=== PATIENT | female | born 1940 | race Caucasian/White ===

== ENCOUNTER 2023-09-30 08:23 | Emergency (ER) | payer MEDICARE, BC, SELFPAY ==
[2023-09-30] VITALS (12 sets, daily range): BP systolic 145–160; BP diastolic 73–88; PULSE 65–79; RESP 20; TEMP 37.6; O2SAT 90–95; BMI 32.6
--- NOTE | 2023-09-30 09:12 | ED_ITS ---
HPI - General Adult General Chief complaint: Arrhythmia/Palpitations Stated complaint: heart palpitations Time Seen by Provider: 09/30/23 08:28 Source: patient Mode of arrival: ambulatory Limitations: no limitations History of Present Illness HPI narrative: 82-year-old female, recently diagnosed with atrial fibrillation and placed on Xarelto which started yesterday, comes in today complaining of palpitations. Sh e states that all night she felt like her heart was beating really fast. She states that she still feels it beating fast right now but it is a little bit better than it was last night. She denies any confusion, nausea, vomiting or chest pain. She is not short of breath. Patient states that she had a 2 week ZIO patch placed in recently taken off, she has not gone over the results with her primary doctor or Cardiology. Her past medical history is significant for diabetes, hypertension, hyperlipidemia, history of DVT, GERD, obesity. Related Data Home Medications Medication Instructions Recorded Confirmed acyclovir 400 mg tablet 400 mg PO .As Needed PRN 04/05/22 09/11/23 amlodipine 10 mg tablet 10 mg PO DAILY 04/05/22 09/11/23 aspirin 81 mg tablet,delayed 81 mg PO DAILY 04/05/22 09/11/23 release atorvastatin 40 mg tablet 40 mg PO .Bedtime 04/05/22 09/11/23 celecoxib 200 mg capsule 200 mg PO DAILY 04/05/22 09/11/23 furosemide 20 mg tablet 20 mg PO DAILY 04/05/22 09/11/23 latanoprost 0.005 % eye drops 1 drp ophthalmic (eye) .Bedtime 04/05/22 09/11/23 losartan 100 mg tablet 100 mg PO DAILY 04/05/22 09/11/23 metformin 500 mg tablet 500 mg PO BID 04/05/22 09/11/23 multivitamin 1 tab PO QDAY 04/05/22 09/11/23 omeprazole 20 mg capsule,delayed 20 mg PO DAILY 04/05/22 09/11/23 release gabapentin 300 mg capsule mg PO 01/11/23 09/11/23 rivaroxaban 20 mg tablet (Xarelto) 20 mg PO QPM 09/30/23 09/30/23 Previous Rx's Medication Instructions Recorded Walker- 4 Wheels #1 ea 05/02/22 cane #1 ea 02/08/23 Allergies Allergy/AdvReac Type Severity Reaction Status Date / Time benazepril Allergy Verified 09/11/23 09:40 ciprofloxacin Allergy Rash Verified 09/11/23 09:40 hydrochlorothiazide Allergy Verified 09/11/23 09:40 latex Allergy Verified 09/11/23 09:40 metoprolol Allergy Verified 09/11/23 09:40 Penicillins Allergy Verified 09/11/23 09:40 Sulfa (Sulfonamide Allergy Verified 09/11/23 09:40 Antibiotics) Review of Systems Status of ROS: Reports: 10 or more systems reviewed and unremarkable except as noted in History and below [facility] Medical History Amputation toe ?S98.139A - Complete traumatic amputation of one unspecified lesser toe, initial encounter (ICD-10) Surgical History Status post vaginal hysterectomy (05/08/19) ?Z90.710 - Acquired absence of both cervix and uterus (ICD-10) Hx of cholecystectomy ?Z90.49 - Acquired absence of other specified parts of digestive tract (ICD- 10) 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 Alert and oriented. Answers questions appropriately. Mood and affect are appropriate. Thoughts are goal oriented and rational. No tangential or magical thinking noted. Patient speaks in full sentences without needing to catch her breath. HEENT: Normocephalic atraumatic. Pupils are equally round reactive to light. Extraocular muscles are intact. Conjunctivae are moist without any icterus noted. Moist mucous membranes. Cardiovascular: Heart is regular rate and rhythm S1 and S2 are present with a 1/6 systolic murmur. Lungs: Clear to auscultation bilaterally no wheezes rhonchi or rales are appreciated. Patient takes deep breaths without any discomfort. Abdomen: Soft and nontender nondistended with normal bowel sounds. Extremities: Bilateral lower extremities are without edema. Skin: Well perfused without any obvious rashes. Const: Vital Signs, click to edit/add: Vital Signs - 24 hr 09/30/23 08:38 09/30/23 08:45 09/30/23 08:46 Temperature 99.6 F Pulse Rate 76 75 Pulse Rate [Pulse Oximeter] 73 Respiratory Rate 20 Blood Pressure Blood Pressure [Ri ght Upper Arm] 160/73 H Pulse Oximetry 93 91 92 Oxygen Delivery Me thod Room Air 09/30/23 09:00 09/30/23 09:02 Temperature Pulse Rate 70 75 Pulse Rate [Pulse Oximeter] Respiratory Rate Blood Pressure 154/76 H Blood Pressure [Ri ght Upper Arm] Pulse Oximetry 94 92 Oxygen Delivery Me thod Course Course ED Course: EKG, read by me, looks like it is normal sinus rhythm with premature atrial complexes, right bundle-branch block, pulse of 75. However when she is on the dust operator it does look more consistent with atrial fibrillations with loss of P waves and a more varied pulse ranging from 66-78. We had the patient ambulate, her pulse did go up to 90 and her oxygen remained around 94%. Repeat EKG was done at this time and was unchanged. Patient was monitored for approximately 90 minutes, pulse remained stable. She did not have any chest pain. Troponin was checked and was within normal limits. Vital Signs Vital signs: Initial Vital Signs Pulse Rate 76 09/30/23 08:38 Pulse Oximetry 93 09/30/23 08:38 Vital Signs Pulse Rate 76 09/30/23 08:38 Pulse Oximetry 93 09/30/23 08:38 Temperature 99.6 F 09/30/23 08:46 Pulse Rate 75 09/30/23 09:02 Respiratory Rate 20 09/30/23 08:46 Blood Pressure 154/76 H 09/30/23 09:02 Pulse Oximetry 92 09/30/23 09:02 Oxygen Delivery Method Room Air 09/30/23 08:46 Medical Decision Making [facility] Narrative Medical decision making narrative: 82-year-old female with recent diagnosis of atrial fibrillation, on Xarelto. Presenting with palpitations. Patient has been stable while in the ED. We discussed returning if she feels palpitations again. We discussed checking how fast her pulse is going at home we went over how to do that today. And she already has follow-up scheduled with primary care, she will keep that appointment. Lab Data Lab results reviewed: Yes I reviewed the patient's lab results Labs: Lab Results 09/30/23 Range/Units 09:16 POC Troponin I 0.01 (0.01-0.04) ng/ml ECG Data Attestation: I personally reviewed and interpreted this ECG as follows: Discharge Plan Discharge Clinical Impression: Heart palpitations Patient Disposition: Home, Self-Care Condition: Stable Additional Instructions: If you feel your heart go fast again, recommend checking her pulse. If your above 100 do recommend you return to the ED. Also recommend you return if you have any chest pain or significant shortness of breath. Otherwise you can follow-up with your primary care provider. While your in the ER today, your heart did not go too fast or in any life threatening rhythms. We checked the enzyme of your heart, called the troponin, to make sure that the heart was not under any stress and this was normal. Prescriptions: No Action gabapentin 300 mg capsule PO losartan 100 mg tablet 100 mg PO DAILY furosemide 20 mg tablet 20 mg PO DAILY omeprazole 20 mg capsule,delayed release(DR/EC) 20 mg PO DAILY amlodipine 10 mg tablet 10 mg PO DAILY aspirin 81 mg tablet,delayed release (DR/EC) 81 mg PO DAILY acyclovir 400 mg tablet 400 mg PO .As Needed PRN metformin 500 mg tablet 500 mg PO BID atorvastatin 40 mg tablet 40 mg PO .Bedtime latanoprost 0.005 % drops 1 drp ophthalmic (eye) .Bedtime celecoxib 200 mg capsule 200 mg PO DAILY multivitamin Tablet 1 tab PO QDAY Xarelto 20 mg tablet 20 mg PO QPM (DME) Walker- 4 Wheels Misc See Rx Instructions .Route Qty: 1 0RF Rx Instructions: As directed- 4-wheeled walker equipped with brake and seat (DME) cane Device See Rx Instructions .Route Qty: 1 0RF Rx Instructions: As directed Follow Up/Referrals: Yordy Redding PA-C [Primary Care Provider] - Stand Alone Forms: [facility] Info Instructions
[2023-09-30 09:40] LABS: Troponin, Point-of-Care* 0.01 ng/ml (0.01-0.04)
== END 2023-09-30 10:20 | disposition home or self-care (01) ==
PROVIDERS: Emergency Provider Family Medicine; PCP Physician Assistant Medical
DX: R00.2 Palpitations (principal)
CPT/HCPCS: 84484; 99284